=== PATIENT | male | born 1985 | race African-American/Black ===

== ENCOUNTER 2017-11-01 12:40 | Inpatient (IN) | payer SELFPAY ==
[2017-11-01 13:56] LABS: Anion Gap 7 mmol/L (10-20); BUN (Urea Nitrogen) 17 mg/dL (8.9-20.6); Calc. Creatinine Clearance 0 mL/min (70-130); Carbon Dioxide 28 mmol/L (22-29); Chloride 107 mmol/L (98-107); Dilantin Less than 1.8 ug/mL (10.0-20.0); Estimated GFR-MDRD Greater than 90; Glucose 78 mg/dL (70-105); Potassium 4.1 mmol/L (3.5-5.1); Sodium 138 mmol/L (136-145)
[2017-11-01] MEDS ORDERED: Ondansetron HCl/PF 4 MG/2 ML Vial ONE (15:21)
[2017-11-01] MEDS ORDERED: Lorazepam 2 MG/ML VIAL ONE ×2 (15:23→15:35)
[2017-11-01] MEDS ORDERED: Haloperidol Lactate 5 MG/ML VIAL ONE (15:40)
[2017-11-01] MEDS ORDERED: levETIRAcetam In NaCl (Iso-Os) 1,000 MG in Premix Bag 1 BAG IVPB SCH (16:00)
[2017-11-01] MEDS ORDERED: diphenhydrAMINE 50 MG/ML VIAL ONE (16:22)
[2017-11-01] MEDS ORDERED: Ziprasidone 20 MG VIAL ONE (16:47)
[2017-11-01] MEDS ORDERED: Water For Injection,Sterile 20 ML ONE (16:48)
[2017-11-01] MEDS ORDERED: Acetaminophen 650 MG Suppository PR PRN (17:56)
[2017-11-01] MEDS ORDERED: Acetaminophen 325 MG TAB PO PRN (17:56)
[2017-11-01] MEDS ORDERED: Bisacodyl 5 MG TAB PO PRN (17:56)
--- NOTE | 2017-11-01 17:57 | CT ---
BRAIN CT WITHOUT IV CONTRAST: 11/01/17 HISTORY: 32-year-old male with history of fall while having a seizure. Noncontrast brain CT scan is performed. There is no focal mass or midline shift. No intra or extra-ax ial hemorrhage. Sinuses and mastoids are clear. IMPRESSION: No mass or bleed or other acute process. POS: [facility]
--- NOTE | 2017-11-01 18:00 | CT ---
CERVICAL SPINE CT SCAN WITHOUT IV CONTRAST: 11/01/17 HISTORY: 32-year-old male with history of seizure and fall. There is no fracture or facet dislocation. No malalignment. No significant canal stenosis. IMPRESSION: Unremarkable cervical spine CT scan. POS: [facility]
--- NOTE | 2017-11-01 18:22 | HP ---
PRIMARY CARE PROVIDER: Unknown, patient is city call. CHIEF COMPLAINT: Seizure. HISTORY OF PRESENT ILLNESS: Mr. Conrad is a 32-year-old gentleman who was seen at [facility] on 11/01/2017. Unfortunately, at the time of examination, Mr. Conrad is opening his ey es to his name, but is otherwise unable to provide any significant history, since he received sedatio n. History was obtained from discussion with the emergency room physician as well as review of medical r ecords. Patient was transferred from [place] for seizures. He reportedly has a history of TBI 7 years ago and a seizure disorder. He had a seizure while at [employer] today. He has had a history of seizures for the last 3 years. He reportedly does not take his phe nytoin as he is supposed to and has not seen a primary care provider in a while. When he arrived at this emergency room, he was postictal. He received Ativan 1 mg twice in [place] . His urine drug screen in [place] was positive for barbiturates and THC. He is also supposed to be on Keppra in addition to phenytoin and is reportedly not taking his medications. REVIEW OF SYSTEMS: Could not be completed because of patient's noncooperation. PAST MEDICAL HISTORY: Traumatic brain injury, seizures. SURGICAL HISTORY: None. FAMILY HISTORY: Unable to obtain. SOCIAL HISTORY: Unable to obtain. ALLERGIES: None. CURRENT MEDICATIONS: The patient is noncompliant with taking Keppra and phenytoin. PHYSICAL EXAMINATION: GENERAL: On examination, Mr. Conrad is sleepy, but arousable, not in acute distress. VITAL SIGNS: Blood pressure is 116/69, pulse is 76, his breathing at rate of 20 and saturating 98% o n room air. He is afebrile. EYES: No scleral icterus. No conjunctival pallor. Pupils are 4 mm bilaterally, reactive to light. ENT: Moist mucosal membranes, no oropharyngeal erythema or exudates. NECK: Patient is wearing a cervical collar. No thyromegaly, trachea is midline. RESPIRATORY: Accessory muscles of breathing are not active. Chest wall movements are symmetric bila terally. LUNGS: Clear to auscultation without wheeze, rhonchi or crepitations. CARDIOVASCULAR: S1 and S2 are heard, regular. Peripheral pulses palpable. No carotid bruit, no per icardial rub. ABDOMEN: Soft, nontender, bowel sounds are heard, no hepatomegaly, no splenomegaly. NEUROLOGIC: Full neurologic examination not possible secondary to the patient's noncooperation. Pup ils as described above. No facial droop. He is moving all 4 extremities. Deep tendon reflexes are 2+. Plantar reflex are downgoing bilaterally. SKIN: No rashes or subcutaneous nodules. LYMPHATIC: No cervical lymphadenopathy. Moving all 4 extremities. PSYCHIATRIC: Unable to assess mood, affect or orientation to person, place, or time. LABORATORY DATA: Mr. Hollingsworth's labs and investigations were reviewed. He had an electrocardiogram, wh ich showed sinus bradycardia, no ST changes to suggest an acute coronary syndrome. He also had CT sc ans of cervical spine and brain, report is pending. He has normal electrolytes, normal creatinine, p henytoin level less than 1.8, Keppra level 0, normal white count, normal hemoglobin and normal platel et count. Urinalysis is unremarkable. Urine toxicology screen is positive for barbiturates and THC. ASSESSMENT AND PLAN: Mr. Conrad is a pleasant 32-year-old gentleman who was seen at [facility] on 11/01/2017. His problem list includes: 1. Seizures: Mr. Conrad had seizures, secondary to medication noncompliance. His case was discussed with the neurologist monotype machinist by emergency room physician. Mr. Conrad is being admitted to the [facility] for further management. He has received a loading dose of Keppra and phenytoin. 2. Fall. Mr. Conrad had a fall in the emergency room. He is currently awaiting reports of CT scan o f neck and head. 3. Recreational drug use: When Mr. Conrad is more alert and awake, he will need to be counseled rega rding cessation of recreational drug use. 4. Medication noncompliance. Mr. Conrad will need counseling regarding this issue as well. LEVEL OF RISK: Moderate. LEVEL OF COMPLEXITY: Moderate.
[2017-11-01] MEDS ORDERED: Lorazepam 2 MG/ML VIAL SLOW IVP PRN (18:45)
[2017-11-01 20:43] LABS: Anion Gap 12 mmol/L (10-20); BUN (Urea Nitrogen) 15 mg/dL (8.9-20.6); Calc. Creatinine Clearance 114 mL/min (70-130); Carbon Dioxide 25 mmol/L (22-29); Chloride 107 mmol/L (98-107); Estimated GFR-MDRD Greater than 90; Glucose 80 mg/dL (70-105); Sodium 140 mmol/L (136-145)
[2017-11-01] MEDS ORDERED: levETIRAcetam 500 MG TAB PO SCH (21:00)
[2017-11-01 22:24] VITALS: BMI 20.6
--- NOTE | 2017-11-01 23:34 | CON ---
DATE OF CONSULTATION: 11/01/2017 REFERRING PHYSICIAN: Dr. Jose A Zapata. REASON FOR CONSULTATION: Recurrent seizures. HISTORY OF PRESENT ILLNESS: Mr. Conrad is a 32-year-old -[place] male, who has been consulted for evaluation of a recurrent seizure. History is very limited as patient is unable to provide and there are no family member present at bedside, thus most of the history is obtained from the patient's dictated H& P note. Apparently, the patient has a history of seizure disorder. He is supposed to be on Dilantin and Keppra for his seizures. He reportedly has a history of traumatic brain injury 7 years ago and developed seizures secondary to that. He had a seizure while at work today, which prompted his arrival to the emergency room. When he arrived to the emergency room, he was confused and combative. He received 1 mg of Ativan twice. He had a drug screen done in [place], which was positive for barbiturates and THC, and Dilantin and Keppra level were less than 1.8. PAST MEDICAL HISTORY, PAST SURGICAL HISTORY, SOCIAL HISTORY, FAMILY HISTORY, CURRENT MEDICATIONS, ALLERGIES: Could not be obtained. REVIEW OF SYSTEMS: Could not be obtained. PHYSICAL EXAMINATION: VITAL SIGNS: Blood pressure of 97/55, pulse of 61, temperature of 98.1, respirations of 18, O2 sats of 100% on room air. GENERAL: Obtunded -[place] male in no apparent distress. RESPIRATORY: Clear to auscultation bilaterally. CARDIOVASCULAR: Regular rate and rhythm. NEUROLOGIC: Mental status: The patient is obtunded. He is drowsy from multiple sedating medications given earlier in the day. Cranial nerves: Pupils are 3 mm reactive, unable to perform the rest of the cranial nerve examination as patient is known to participate. He withdraws to pain in both upper and lower extremities is spontaneously moving both upper and lower extremities and feeling in his arms and legs when nurses are trying to perform any activities like taking blood pressure. LABORATORY DATA: Reviewed, which included CBC, CMP, urine drug screen, and Dilantin and Keppra level, which is significant for Dilantin level less than 1.8 and Keppra of 0. IMAGING STUDIES: CT head without contrast was reviewed which showed no acute intracranial abnormality. IMPRESSION: 1. Recurrent seizure. 2. Noncompliance with medications. 3. Polysubstance abuse. ASSESSMENT AND PLAN: Mr. Conrad is a 32-year-old -[place] male with a history of seizure disorder who presented with recurrent seizures. This is likely secondary to noncompliance with medication as his Dilantin level is less than 1.8 and Keppra level was nonexistent. At this time, I would recommend restarting back on his home antiepileptic medications. Continue supportive care. Continue close monitoring of his neurological function. Thank you for the consultation. MAE
[2017-11-02 05:45] LABS: #Lymphocytes 2.1 thou/uL (1.20-3.40); #Monocytes 0.9 thou/uL (0.11-0.59); #Neutrophils 7.5 thou/uL (1.40-6.50); %Basophils 0.2 % (0.0-1.0); %Eosinophils 0.3 % (0.0-10.0); %Lymphocytes 19.8 % (21.0-51.0); %Monocytes 8.6 % (0.0-10.0); Hemoglobin 13.3 g/dL (14.0-18.0); Mean Corpuscular HGB CONC 31.8 g/dL (32.0-36.0); Mean Corpuscular Hemoglobin 25.1 pg (27.0-31.0); Mean Platelet Volume 6.9 fL (7.4-10.4); Platelet Count 246 thou/uL (130-400); RBC Distribution Width 12.9 % (11.5-14.5); Red Blood Cell (RBC) Count 5.29 mill/uL (4.70-6.10); White Blood Cell (WBC) Count 10.5 thou/uL (4.8-10.8)
[2017-11-02] MEDS ORDERED: levETIRAcetam 500 MG TAB PO SCH (09:00)
[2017-11-02 15:19] VITALS: BP 108/61; TEMP 99.1
--- NOTE | 2017-11-02 23:32 | DIS ---
DATE OF ADMISSION: 11/01/2017 DATE OF DISCHARGE: 11/02/2017 DISCHARGE DIAGNOSES: 1. Recurrent seizures secondary to noncompliance. 2. Status post fall secondary to #1, stable. 3. Marijuana use. CONSULTATIONS: Dr. Sadie Up with Neurology Service. PERTINENT LABORATORY AND X-RAY FINDINGS: Basic metabolic profile within normal limits. CBC showed a white blood cell count of 10.5, hemoglobin 13, hematocrit 42, platelet count 246 with normal differe ntial. Phenytoin level 1.8. Keppra level less than 0.0. Urine drug screen positive for THC and bar biturates. CT of the brain without contrast dated 11/01/2017 showed no acute intracranial process. CT of cervical spine dated 11/01/2017 showed no evidence of fracture or dislocation. HOSPITAL COURSE: The patient was admitted to the stroke unit after initially presenting with seizure activity in the context of known seizure disorder on supposed chronic Dilantin and Keppra. The rene ent with apparent noncompliance with his medication regimen with Dilantin level of 1.8 and Keppra lev el that was undetectable on screening exam. The patient was initiated on Keppra 500 mg b.i.d. as wel l as recommendations for Dilantin 300 mg p.o. at bedtime. The patient remained seizure free during t he hospital course with telemetry monitoring showing sinus mechanism without acute arrhythmia or dysr hythmia. The patient overall remained clinically stable through the hospital course, tolerating regu lar oral intake, ambulating without assistance or difficulty and voiding appropriately. I have exami lina the patient at the time of discharge and discussed laboratory findings, followup instructions and outpatient management, recommendations. The patient verbalizes understanding and in agreement and w ill discharge on 11/02/2017. DISCHARGE MEDICATIONS: 1. Dilantin 300 mg p.o. at bedtime. 2. Keppra 500 mg p.o. b.i.d. FOLLOWUP: The patient may follow up with Dr. Sadie Up with Neurology Service within 4-6 weeks afte r discharge. CONDITION ON DISCHARGE: Stable. ACTIVITY: Ad enid. DIET: Regular. CODE STATUS: FULL. DISPOSITION: Home on 11/02/2017.
--- NOTE | 2017-11-05 15:47 | EKG ---
Test Reason : Blood Pressure : / mmHG Vent. Rate : 057 BPM Atrial Rate : 057 BPM P-R Int : 128 ms QRS Dur : 086 ms QT Int : 400 ms P-R-T Axes : 055 045 026 degrees QTc Int : 389 ms Sinus bradycardia Otherwise normal ECG Confirmed by CAMERON HERNANDEZ M.D. ([id number]), tape editor DEEPIKA MACEDO ([id number]) on 11/05/2017 3:46:32 PM Referred By: Confirmed By:CAMERON HERNANDEZ M.D.
== END 2017-11-02 18:34 | disposition home or self-care (01) | DRG 101 ==
LOC: ERS 12:40 → 2SE 17:59
PROVIDERS: ADMIT Internal Medicine; ATTEND Internal Medicine
DX: T42.6X6A Underdosing of other antiepileptic and sedative-hypnotic drugs, initial encounter; Z91.128 Patient's intentional underdosing of medication regimen for other reason; Z87.820 Personal history of traumatic brain injury; F19.10 Other psychoactive substance abuse, uncomplicated; G40.909 Epilepsy, unspecified, not intractable, without status epilepticus
CPT/HCPCS: 36415; 36416; 70450; 72125; 80048; 80177; 80185; 85025; 93005; 96365; 96367; 96372; 96375; J1200; J1630; J1953; J2060; J2405; J3486; J7050; Q2009

== ENCOUNTER 2021-06-28 09:40 | Emergency (ER) | payer SELFPAY ==
[2021-06-28] MEDS ORDERED: Ondansetron ODT 4 MG TAB ONE (10:23)
[2021-06-28 10:34] LABS: #Basophils 0.1 thou/uL (0.0-0.2); #Eosinphils 0.1 thou/uL (0.0-0.7); #Lymphocytes 2.1 thou/uL (1.20-3.40); #Monocytes 0.9 thou/uL (0.11-0.59); #Neutrophils 5.6 thou/uL (1.40-6.50); %Basophils 0.9 % (0.0-1.0); %Eosinophils 0.7 % (0.0-10.0); %Lymphocytes 24.1 % (21.0-51.0); %Monocytes 10.4 % (0.0-10.0); %Neutrophils 63.9 % (42.0-75.0); Mean Corpuscular HGB CONC 30.7 g/dL (32.0-36.0); Mean Corpuscular Hemoglobin 24.9 pg (27.0-31.0); Mean Corpuscular Volume 81.1 fL (78.0-98.0); Mean Platelet Volume 6.6 fL (7.4-10.4); Platelet Count 252 thou/uL (130-400); RBC Distribution Width 13.7 % (11.5-14.5); White Blood Cell (WBC) Count 8.7 thou/uL (4.8-10.8)
[2021-06-28 10:57] LABS: ALT (SGPT) 47 U/L (8-55); AST (SGOT) 25 U/L (5-34); Albumin 4.1 g/dL (3.5-5.0); Alkaline Phosphatase 42 U/L (40-110); Anion Gap 14 mmol/L (10-20); BUN (Urea Nitrogen) 11 mg/dL (8.9-20.6); Bilirubin, Total 0.2 mg/dL (0.2-1.2); Calc. Creatinine Clearance 0 mL/min (70-130); Calcium 9.3 mg/dL (7.8-10.44); Carbon Dioxide 23 mmol/L (22-29); Chloride 105 mmol/L (98-107); Globulin 3.2 g/dL (2.4-3.5); Glucose 100 mg/dL (70-105); Potassium 4.1 mmol/L (3.5-5.1); Protein, Total 7.3 g/dL (6.0-8.3); Sodium 138 mmol/L (136-145)
== END 2021-06-28 12:19 | disposition home or self-care (01) ==
LOC: ERS 09:40
DX: R56.9 Unspecified convulsions (principal); Z87.820 Personal history of traumatic brain injury; F17.210 Nicotine dependence, cigarettes, uncomplicated
CPT/HCPCS: 36415; 71045; 80053; 80177; 80185; 85025; Q0162